=== PATIENT | female | born 1940 | race Caucasian/White ===

== ENCOUNTER → 2019-02-16 | Outpatient (CLI) | payer MEDICARE, OTHER ==
[~2019-02-16] MED LIST: HYDROCODONE-AP1 EA10 PO; IOPAMIDOL 370 MG/ML 200 ML INFUS..BTL INJ ONE; PREMARIN45 GM; REMICADE100 MG; SODIUM CHLORIDE 0.9% 250ML 250 ML ONE; Z.0.ALEVE220 M1 PO; Z.0.ESTRADIOL0.5 MG PO; Z.0.LUNESTA3 MG PO; Z.0.LYRICA75 MG PO; Z.0.PENTOXIFYLLINE40 PO; [UNRECOGNIZED DRUG - CODE] PO
[2019-02-16 13:32] LABS: BLOOD UREA NITROGEN 23 mg/dL (7-26); BUN/CREATININE RATIO 27 (6-25); CREATININE, SERUM 0.85 mg/dL (0.57-1.11); EST GLOMERULAR FILTRATION RATE > 60 ML/MIN (60-)
--- NOTE | 2019-02-16 15:19 | Diagnostic Imaging Report ---
Exam: CT abdomen and pelvis Clinical history: Gross hematuria Comparison: July 25, 2013 Technique: Helical images of the abdomen and pelvis were obtained before and after IV contrast demonstration DOSE REDUCTION: The exams was performed according to the departmental dose-optimization program which includes automated exposure control, adjustment of the mA and/or kV according to patient size and/or use of iterative reconstruction technique. Findings: 1. The lung bases are clear. There is no evidence of pleural effusion. The cardiac size is within normal limits. The liver, pancreas, spleen, adrenal glands, and left kidney are unremarkable. A 9 mm hypodense lesion is seen in the interpolar region right kidney most compatible with a cyst. The gallbladder has been removed. Diverticulosis throughout the descending colon is again noted. The small and large bowels are normal in caliber without evidence of obstruction. Calcification of aorta and bilateral iliac vessels are noted. There is no evidence of lymphadenopathy or free fluid. The aorta and IVC are normal in caliber. Degenerative changes are noted throughout the lumbar spine. Impression: 1. Subcentimeter right renal cyst as described. 2. Colonic diverticulosis. 3. Status post hysterectomy. 4. Stable appearing hypodense lesion in the left hepatic lobe measuring 1.5 cm most compatible with a cyst. Signed by: Dr. Stone Davidson MD on 02/16/2019 3:15 PM
== END ==
LOC: CT 12:28
PROVIDERS: ATTEND Urology
DX: R31.0 Gross hematuria (principal)
CPT/HCPCS: 36415; 74178; 82565; 84520; J7050; Q9967

== ENCOUNTER → 2019-05-17 | Outpatient (CLI) | payer MEDICARE, OTHER ==
[~2019-05-17] MED LIST changes: -IOPAMIDOL 370 MG/ML 200 ML INFUS..BTL INJ ONE; -SODIUM CHLORIDE 0.9% 250ML 250 ML ONE
--- NOTE | 2019-05-17 12:29 | Diagnostic Imaging Report ---
Renal ultrasound, 05/17/2019. History: Microscopic hematuria. Discussion: Transverse and longitudinal images of the kidneys were obtained demonstrating normal renal sizes and echogenicities. There is no evidence of hydronephrosis, mass, or renal calculus. The right kidney measures 9.9 cm and the left kidney measures 10.1 cm in length. Renal cortex measures 1.1 and 1.3 cm respectively. The urinary bladder is unremarkable. Bilateral ureteral jets are identified. Bladder volume measures 22 mL. There is no evidence of free fluid. IMPRESSION: Normal renal ultrasound. Signed by: Dennis Mcallister on 05/17/2019 12:26 PM
== END ==
LOC: US 10:47
PROVIDERS: ATTEND Urology
DX: R31.21 Asymptomatic microscopic hematuria (principal)
CPT/HCPCS: 76770